=== PATIENT | female | born 1985 | race Caucasian/White ===

== ENCOUNTER 2020-02-08 18:34 | Emergency (ER) | payer OTHER ==
[2020-02-08 20:12] LABS: BASOPHIL 0.9 % (0-2); HCT 50.9 % (37.0-47.0); HGB 16.8 g/dl (12.5-16.0); LYMPHOCYTE 35.7 % (15-48); MCH 31.3 pg (25.0-31.0); MONOCYTE 9.8 % (0-12); MPV 9.3 fL (6.0-9.5); NEUTROPHIL 51.2 % (41-80); NRBC 0; PLT 247 K/uL (150-400); RBC 5.36 M/uL (4.20-5.40); RDW 14.2 % (11.5-14.0); WBC 10.6 K/uL (4.0-10.5)
[2020-02-08 20:28] LABS: BUN/CREAT RATIO (CALC) 23.2 RATIO; C-REACTIVE PROTEIN 0.5 mg/dL (<=0.90); CREATININE 0.69 mg/dL (0.51-0.95); POTASSIUM 4.2 mmol/L (3.5-5.1)
[2020-02-08] MEDS ORDERED: IMITREX SQ6 MG/0.5 M SC (21:07)
[2020-02-08] MEDS ORDERED: FIORICET1 EACH PO (21:07)
== END 2020-02-08 21:28 | disposition home or self-care (01) ==
LOC: FER 18:34
PROVIDERS: Emergency Medicine Emergency Medical Services
DX: R51.9 Headache, unspecified (principal); M54.2 Cervicalgia; I10 Essential (primary) hypertension; F17.210 Nicotine dependence, cigarettes, uncomplicated; Z88.5 Allergy status to narcotic agent; Z88.8 Allergy status to other drugs, medicaments and biological substances
CPT/HCPCS: 36415; 70450; 80048; 85025; 86140; 96372; J1100; J3030